=== PATIENT | female | born 1955 | race Caucasian/White ===

== ENCOUNTER → 2025-05-04 16:45 | Outpatient (REF) | payer MEDICARE, OTHER, SELFPAY ==
[2025-05-04 18:26] LABS: TSH 2.18 uIU/ml (0.47-4.68)
[2025-05-06 18:30] LABS: Thyroglobulin 74.8 ng/mL (1.3-31.8); Thyroglobulin Antibodies <1.5 IU/mL (0.0-4.0)
[2025-05-07 02:55] LABS: Thyroid Stim. Immunoglobulin 0.36 IU/L (<=0.54)
[2025-05-07 08:04] LABS: Total T3 (Sendout) 98 ng/dL (80-200)
== END ==
LOC: REG 16:45
PROVIDERS: ATTENDING PHYSICIAN Ophthalmology; FAMILY PHYSICIAN Family Medicine
DX: H05.823 Myopathy of extraocular muscles, bilateral (principal)
CPT/HCPCS: 36415; 84432; 84439; 84443; 84445; 84480; 86376; 86800

== ENCOUNTER → 2025-05-05 14:06 | Outpatient (REF) | payer MEDICARE, OTHER, SELFPAY | LOC: HWRAD 14:06 | PROVIDERS: ATTENDING PHYSICIAN Ophthalmology; FAMILY PHYSICIAN Family Medicine | DX: H05.8 Other disorders of orbit (principal) | CPT/HCPCS: 70480 ==